=== PATIENT | male | born 1970 | race Two or more races ===

== ENCOUNTER → 2018-09-21 | Outpatient (CLI) | payer OTHER | END | disposition home or self-care (01) | LOC: RAD 12:23 | PROVIDERS: ATTEND Registered Nurse | DX: M47.817 Spondylosis without myelopathy or radiculopathy, lumbosacral region (principal); M99.13 Subluxation complex (vertebral) of lumbar region | CPT/HCPCS: 72110; 72148 ==

== ENCOUNTER → 2018-09-27 | Outpatient (CLI) | payer OTHER ==
[~2018-09-27] MED LIST: GADOBUTROL 10 MMOL/10 ML PFS ONE
== END | disposition home or self-care (01) ==
LOC: RAD 10:05
PROVIDERS: ATTEND Registered Nurse
DX: D32.1 Benign neoplasm of spinal meninges (principal)
CPT/HCPCS: 72149; A9585

== ENCOUNTER 2018-10-29 05:18 | Inpatient (IN) | payer OTHER ==
[~2018-10-29] VITALS: Ht 165.1 cm; Wt 84.0 kg
[~2018-10-29 05:18] MED LIST changes: -GADOBUTROL 10 MMOL/10 ML PFS ONE; +NONE PER PT
[2018-10-29] MEDS ORDERED: LACTATED RINGERS 1,000 ML IV SCH (06:06)
[2018-10-29 06:08] VITALS: BP 144/100
[2018-10-29] MEDS ORDERED: MIDAZOLAM 1 MG/ML, 2ML ONE (06:21)
[2018-10-29] MEDS ORDERED: FENTANYL PF 250 MCG/5ML ONE ×2 (06:21→10:15)
[2018-10-29] MEDS ORDERED: THROMBIN 20,000 UNIT VIAL TP ONE (06:24)
[2018-10-29] MEDS ORDERED: THROMBIN 5,000 UNIT VIAL TP ONE (06:24)
[2018-10-29] MEDS ORDERED: BUPIVACAINE/PF-EPI 0.5% 1:200K ONE (06:24)
[2018-10-29] MEDS ORDERED: methylPREDNISolone SOD SUCC 125 MG/2 ML ONE (06:24)
[2018-10-29] MEDS ORDERED: BACITRACIN 50,000 UNIT ONE (06:24)
[2018-10-29] MEDS ORDERED: GABAPENTIN 300 MG CAPSULE PO ONE (07:00)
[2018-10-29] MEDS ORDERED: ACETAMINOPHEN 500 MG TABLET PO ONE (07:00)
[2018-10-29] MEDS ORDERED: KETAMINE 50 MG/ML, 10ML ONE (07:12)
[2018-10-29] MEDS ORDERED: CEFAZOLIN 1,000 MG ONE (07:12)
[2018-10-29] MEDS ORDERED: LIDOCAINE-MPF 2% ,5ML ONE ×2 (07:12)
[2018-10-29] MEDS ORDERED: ROCURONIUM 10 MG/ML,10ML ONE (07:12)
[2018-10-29] MEDS ORDERED: PHENYLEPHRINE 10 MG/ML ONE ×2 (07:12)
[2018-10-29] MEDS ORDERED: KETOROLAC 30 MG/1 ML ONE (07:12)
[2018-10-29] MEDS ORDERED: DEXAMETHASONE 4 MG/ML, 5ML ONE (07:12)
[2018-10-29] MEDS ORDERED: ONDANSETRON 2MG/ML, 2ML ONE (07:12)
[2018-10-29] MEDS ORDERED: SUCCINYLCHOLINE 20 MG/ML, 10ML ONE (07:12)
[2018-10-29] MEDS ORDERED: PROPOFOL 50 ML ONE ×4 (09:31→12:05)
[2018-10-29] MEDS ORDERED: LORazepam 2 MG/ML, 1ML IVPush PRN (12:30)
[2018-10-29] MEDS ORDERED: OXYcodone 5 MG/5 ML ORAL.SOL UDC PO PRN (12:30)
[2018-10-29] MEDS ORDERED: LABETALOL 5MG/ML, 20ML IV PRN ×2 (12:30→15:30)
[2018-10-29] MEDS ORDERED: hydrALAzine 20 MG/ML, 1ML IV PRN (12:30)
[2018-10-29] MEDS ORDERED: MEPERIDINE/PF 25MG/0.5ML IVPush PRN (12:30)
[2018-10-29] MEDS ORDERED: ALBUTEROL SULFATE 2.5 MG/3 ML NPPB PRN (12:30)
[2018-10-29] MEDS ORDERED: FENTANYL PF 100 MCG/2ML IV PRN (12:30)
[2018-10-29] MEDS ORDERED: ACETAMINOPHEN 325 MG TABLET PO PRN (12:30)
[2018-10-29] MEDS ORDERED: HYDROmorphone 2 MG/ML, 1ML IVPush PRN (12:30)
[2018-10-29] MEDS ORDERED: METOCLOPRAMIDE 5 MG/ML, 2ML IV PRN (12:30)
[2018-10-29] MEDS ORDERED: MORPHINE SULFATE 4 MG/ML, 1ML IVPush PRN (12:30)
[2018-10-29 15:00] VITALS: BP 112/72
[2018-10-29] MEDS ORDERED: BISACODYL 10 MG SUPP PR PRN (15:30)
[2018-10-29] MEDS ORDERED: MAGNESIUM HYDROXIDE 8%, 30ML UDC PO PRN (15:30)
[2018-10-29] MEDS ORDERED: CYCLOBENZAPRINE 10 MG TABLET PO PRN (15:30)
[2018-10-29] MEDS ORDERED: HYDROcodone/APAP 5/325 TABLET PO PRN (15:30)
[2018-10-29] MEDS: ONDANSETRON 2MG/ML, 2ML IV PRN ×2 (16:40→22:28)
[2018-10-29] MEDS: NS + 20MEQ KCL 1,000 ML IV SCH (16:40)
[2018-10-29 20:31] VITALS: BP 131/68
[2018-10-29] MEDS: CEFAZOLIN PMX 1GM/50ML 50 ML IVPB SCH (21:46)
[2018-10-30 00:20] VITALS: BP 112/64
[2018-10-30] MEDS: NS + 20MEQ KCL 1,000 ML IV SCH ×2 (02:32→16:04)
[2018-10-30] MEDS: ONDANSETRON 2MG/ML, 2ML IV PRN ×3 (04:28→18:58)
[2018-10-30] MEDS: CEFAZOLIN PMX 1GM/50ML 50 ML IVPB SCH ×3 (05:24→21:22)
[2018-10-30 05:27] LABS: MEAN CORPUSCULAR HEMOGLOBIN 30.9 pg (27.5-34.5); MEAN PLATELET VOLUME 7.4 fL (7.4-10.4); PLATELET COUNT 248 x10^3/uL (130-400); RED BLOOD COUNT 4.08 x10^6/uL (4.38-5.82); RED CELL DISTRIBUTION WIDTH 14.4 % (9.4-14.8)
[2018-10-30 05:32] LABS: ANION GAP 4 mmol/L (5-15); CALCIUM 8.1 mg/dL (8.5-10.1); CHLORIDE 112 mmol/L (98-107); CREATININE 0.71 mg/dL (0.7-1.3)
[2018-10-30 06:00] LABS: BASOPHILS # (AUTO) 0.03 x10^3/uL (0-0.1); BASOPHILS % (AUTO) 0 % (0-1); EOSINOPHILS # (AUTO) 0.01 x10^3/uL (0-0.4); EOSINOPHILS % (AUTO) 0 % (1-7); LYMPHOCYTES # (AUTO) 2.08 x10^3/uL (1-3.4); LYMPHOCYTES % (AUTO) 15 % (22-44); MD SCAN; MONOCYTES # (AUTO) 1.53 x10^3/uL (0.2-0.8); MONOCYTES % (AUTO) 11 % (2-9); NEUTROPHILS # (AUTO) 10.44 x10^3/uL (1.8-6.8); NEUTROPHILS % (AUTO) 74 % (42-75)
[2018-10-30 08:37] VITALS: BP 101/48
[2018-10-30] MEDS: METHOCARBAMOL 750 MG TABLET PO PRN ×2 (08:50→17:31)
[2018-10-30] MEDS: OXYcodone/APAP 5/325MG TABLET PO PRN ×5 (08:50→21:29)
[2018-10-30] MEDS: SENNA/DOCUSATE TABLET PO SCH ×2 (08:50→08:52)
[2018-10-30] MEDS ORDERED: PROMETHAZINE 25 MG/ML, 1ML IM PRN (09:00)
[2018-10-30 12:50] VITALS: BP 113/54
[2018-10-30 20:51] VITALS: BP 130/75
[2018-10-30] MEDS: DIPHENHYDRAMINE 50 MG/ML, 1ML IVPush PRN (21:21)
[2018-10-31 00:50] VITALS: BP 101/61
[2018-10-31] MEDS: ONDANSETRON 2MG/ML, 2ML IV PRN ×4 (01:19→20:51)
[2018-10-31] MEDS: NS + 20MEQ KCL 1,000 ML IV SCH ×2 (01:20→13:29)
[2018-10-31] MEDS: METHOCARBAMOL 750 MG TABLET PO PRN ×3 (01:24→20:51)
[2018-10-31] MEDS: OXYcodone/APAP 5/325MG TABLET PO PRN ×6 (01:25→22:13)
[2018-10-31] MEDS: CEFAZOLIN PMX 1GM/50ML 50 ML IVPB SCH ×3 (05:25→20:52)
[2018-10-31 05:29] LABS: BASOPHILS # (AUTO) 0.03 x10^3/uL (0-0.1); BASOPHILS % (AUTO) 0 % (0-1); EOSINOPHILS # (AUTO) 0.01 x10^3/uL (0-0.4); EOSINOPHILS % (AUTO) 0 % (1-7); LYMPHOCYTES # (AUTO) 2.24 x10^3/uL (1-3.4); LYMPHOCYTES % (AUTO) 16 % (22-44); MD NO; MEAN CORPUSCULAR HEMOGLOBIN 30.7 pg (27.5-34.5); MEAN CORPUSCULAR HGB CONC 33.7 g/dL (33.2-36.2); MEAN CORPUSCULAR VOLUME 91.3 fL (81-97); MEAN PLATELET VOLUME 7.4 fL (7.4-10.4); MONOCYTES # (AUTO) 1.39 x10^3/uL (0.2-0.8); MONOCYTES % (AUTO) 10 % (2-9); NEUTROPHILS # (AUTO) 10.73 x10^3/uL (1.8-6.8); NEUTROPHILS % (AUTO) 75 % (42-75); PLATELET COUNT 245 x10^3/uL (130-400); RED BLOOD COUNT 4.06 x10^6/uL (4.38-5.82); RED CELL DISTRIBUTION WIDTH 14.7 % (9.4-14.8)
[2018-10-31 05:44] LABS: ANION GAP 4 mmol/L (5-15); CALCIUM 8.2 mg/dL (8.5-10.1); CHLORIDE 110 mmol/L (98-107)
[2018-10-31] MEDS: SENNA/DOCUSATE TABLET PO SCH (08:25)
[2018-10-31 08:30] VITALS: BP 107/65
[2018-10-31 13:32] VITALS: BP 123/76
[2018-10-31] MEDS: morphine SULFATE 10 MG/ML, 1ML IV PRN (17:53)
[2018-10-31 17:55] VITALS: BP 147/77
[2018-10-31 21:05] VITALS: BP 151/79
[2018-10-31] MEDS: DIPHENHYDRAMINE 50 MG/ML, 1ML IVPush PRN (22:13)
[2018-11-01] MEDS: NS + 20MEQ KCL 1,000 ML IV SCH ×2 (00:22→10:54)
[2018-11-01 01:47] VITALS: BP 103/64
[2018-11-01] MEDS: OXYcodone/APAP 5/325MG TABLET PO PRN ×2 (02:24→06:56)
[2018-11-01] MEDS: DIPHENHYDRAMINE 50 MG/ML, 1ML IVPush PRN (02:25)
[2018-11-01] MEDS: ONDANSETRON 2MG/ML, 2ML IV PRN ×4 (02:30→20:44)
[2018-11-01 05:25] LABS: BASOPHILS # (AUTO) 0.03 x10^3/uL (0-0.1); BASOPHILS % (AUTO) 0 % (0-1); EOSINOPHILS # (AUTO) 0.12 x10^3/uL (0-0.4); EOSINOPHILS % (AUTO) 1 % (1-7); LYMPHOCYTES # (AUTO) 1.68 x10^3/uL (1-3.4); LYMPHOCYTES % (AUTO) 13 % (22-44); MD NO; MEAN CORPUSCULAR HEMOGLOBIN 30.7 pg (27.5-34.5); MEAN CORPUSCULAR HGB CONC 33.4 g/dL (33.2-36.2); MEAN CORPUSCULAR VOLUME 91.8 fL (81-97); MEAN PLATELET VOLUME 7.6 fL (7.4-10.4); MONOCYTES # (AUTO) 1.16 x10^3/uL (0.2-0.8); MONOCYTES % (AUTO) 9 % (2-9); NEUTROPHILS # (AUTO) 10.16 x10^3/uL (1.8-6.8); NEUTROPHILS % (AUTO) 77 % (42-75); PLATELET COUNT 259 x10^3/uL (130-400); RED BLOOD COUNT 4.04 x10^6/uL (4.38-5.82); RED CELL DISTRIBUTION WIDTH 14.4 % (9.4-14.8)
[2018-11-01 05:30] LABS: CALCIUM 8.7 mg/dL (8.5-10.1); CHLORIDE 105 mmol/L (98-107)
[2018-11-01 05:33] LABS: ANION GAP 7 mmol/L (5-15); CREATININE 0.61 mg/dL (0.7-1.3)
[2018-11-01] MEDS: CEFAZOLIN PMX 1GM/50ML 50 ML IVPB SCH ×3 (05:54→23:01)
[2018-11-01] MEDS: METHOCARBAMOL 750 MG TABLET PO PRN (06:03)
[2018-11-01 07:17] VITALS: BP 115/75
[2018-11-01] MEDS: SENNA/DOCUSATE TABLET PO SCH ×2 (08:13→10:57)
[2018-11-01] MEDS: OXYcodone/APAP 7.5/325MG TABLET PO PRN ×3 (10:54→22:58)
[2018-11-01] MEDS: TIZANIDINE 4MG TABLET PO PRN ×3 (10:54→22:57)
[2018-11-01] MEDS: DEXAMETHASONE 4 MG/ML, 1ML IV SCH ×3 (10:54→22:58)
[2018-11-01] MEDS: morphine SULFATE 10 MG/ML, 1ML IV PRN (11:10)
[2018-11-01 13:18] VITALS: BP 109/68
[2018-11-01] MEDS ORDERED: OXYcodone IR 5MG TABLET PO PRN (16:00)
[2018-11-01 20:28] VITALS: BP 110/72
[2018-11-02] MEDS: ONDANSETRON 2MG/ML, 2ML IV PRN (02:56)
[2018-11-02 03:02] VITALS: BP 119/76
[2018-11-02] MEDS: DEXAMETHASONE 4 MG/ML, 1ML IV SCH (05:19)
[2018-11-02] MEDS: CEFAZOLIN PMX 1GM/50ML 50 ML IVPB SCH ×2 (05:20→06:00)
[2018-11-02] MEDS: OXYcodone/APAP 7.5/325MG TABLET PO PRN ×2 (05:20→10:59)
[2018-11-02] MEDS: TIZANIDINE 4MG TABLET PO PRN ×2 (05:20→11:00)
[2018-11-02] MEDS: NS + 20MEQ KCL 1,000 ML IV SCH (08:06)
[2018-11-02 08:21] VITALS: BP 103/64
[2018-11-02] MEDS ORDERED: CEPH-368 PO (09:20)
[2018-11-02] MEDS ORDERED: OXYC-306 PO (09:22)
[2018-11-02] MEDS ORDERED: METH4TAB2 PO (09:23)
[2018-11-02] MEDS ORDERED: TIZA4CAP PO (09:23)
[2018-11-02] MEDS ORDERED: ONDA4TAB7 PO (09:24)
[2018-11-02] MEDS ORDERED: SENN1TAB8 PO (09:25)
[2018-11-02] MEDS ORDERED: BISA10SU54 PR (09:26)
[2018-11-02] MEDS ORDERED: MAGN400O7 PO (09:30)
[2018-11-02] MEDS ORDERED: DEXAMETHASONE 4 MG TABLET PO SCH (10:30)
[2018-11-02] MEDS ORDERED: ONDANSETRON ODT 4 MG PO PRN (10:30)
== END 2018-11-02 12:03 | disposition home or self-care (01) | DRG 30 ==
LOC: ORIP 05:18 → EDSTATUS 07:00 → 4NOR 14:47 → DCLOUNGE 11-02 11:30
PROVIDERS: ADMIT Neurological Surgery; ATTEND Neurological Surgery
PROC: 00BT0ZZ Excision of Spinal Meninges, Open Approach (ICD-10-PCS; 2018-10-29)
PROC: 01NB0ZZ Release Lumbar Nerve, Open Approach (ICD-10-PCS; 2018-10-29)
PROC: 4A11X4G Monitoring of Peripheral Nervous Electrical Activity, Intraoperative, External Approach (ICD-10-PCS; 2018-10-29)
PROC: 01N80ZZ Release Thoracic Nerve, Open Approach (ICD-10-PCS; principal; 2018-10-29 07:00)
DX: D32.1 Benign neoplasm of spinal meninges (principal)
CPT/HCPCS: 36415; 72100; 80048; 85025; 86850; 86900; 88305; 88331; 95938; 95941; G0378; J0690; J1100; J1885; J2250; J2270; J2405; J2550; J2704; J3010; J3480; J3490; Q0162; C1781; J0330; J1200; J2370; J2930; J7120

== ENCOUNTER → 2018-11-03 | Outpatient (CLI) | payer OTHER ==
[~2018-11-03] MED LIST changes: +BISA10SU54 PR; +CEPH-368 PO; +MAGN400O7 PO; +METH4TAB2 PO; +ONDA4TAB7 PO; +OXYC-306 PO; +SENN1TAB8 PO; +TIZA4CAP PO
== END | disposition home or self-care (01) ==
LOC: RAD 17:23
PROVIDERS: ATTEND Registered Nurse
DX: R60.0 Localized edema (principal)

== ENCOUNTER → 2019-01-03 | Outpatient (CLI) | payer OTHER ==
[~2019-01-03] MED LIST changes: +GADOBUTROL 10 MMOL/10 ML PFS ONE; +SENN-177 PO; -SENN1TAB8 PO
== END | disposition home or self-care (01) ==
LOC: CFH 12:42
PROVIDERS: ATTEND Neurological Surgery
DX: M48.061 Spinal stenosis, lumbar region without neurogenic claudication (principal); M47.816 Spondylosis without myelopathy or radiculopathy, lumbar region; M47.817 Spondylosis without myelopathy or radiculopathy, lumbosacral region; M51.27 Other intervertebral disc displacement, lumbosacral region; D32.1 Benign neoplasm of spinal meninges; Z98.890 Other specified postprocedural states
CPT/HCPCS: 72158; A9585